=== PATIENT | female | born 1980 | race African-American/Black ===

== ENCOUNTER 2020-08-21 17:28 | Emergency (ER) | payer OTHER ==
[~2020-08-21] VITALS: Ht 170.2 cm; Wt 57.6 kg
[2020-08-21] MEDS ORDERED: RAYOS1 MG (17:41)
== END 2020-08-21 20:57 | disposition home or self-care (01) ==
LOC: ER 17:28
DX: D26.9 Other benign neoplasm of uterus, unspecified (principal); N20.0 Calculus of kidney; K59.09 Other constipation; N39.0 Urinary tract infection, site not specified